=== PATIENT | female | born 1975 | race Caucasian/White ===

== ENCOUNTER → 2017-01-31 | Outpatient (CLI) | payer BC | LOC: COL.RAD 12:13 | DX: R10.12 Left upper quadrant pain (principal); K57.30 Diverticulosis of large intestine without perforation or abscess without bleeding; D25.2 Subserosal leiomyoma of uterus | CPT/HCPCS: Q9967 ==

== ENCOUNTER → 2020-09-24 | Outpatient (CLI) | payer BC | LOC: MC.RAD | DX: N63.11 Unspecified lump in the right breast, upper outer quadrant (principal); N64.89 Other specified disorders of breast ==